=== PATIENT | female | born 1965 | race Caucasian/White ===

== ENCOUNTER 2018-11-21 10:32 | Emergency (ER) | payer SELFPAY ==
[~2018-11-21] VITALS: Ht 162.6 cm; Wt 72.6 kg
[2018-11-21] MEDS ORDERED: KETOROLAC TROMETHAMINE INJ 30 MG/ML VIAL IM ONE (11:00)
--- NOTE | 2018-11-21 11:08 | NUR ---
Went to discharge patient-Pt NO longer in room- Looked all over ER depatment unable to locate. Eloped prior to d/c instructions
[2018-11-21 11:10] VITALS: BP 136/92
== END 2018-11-21 11:00 | disposition home or self-care (01) ==
LOC: ER 10:34
DX: M54.5 Low back pain (principal); Z98.890 Other specified postprocedural states; Z88.2 Allergy status to sulfonamides; Z88.8 Allergy status to other drugs, medicaments and biological substances; X50.0XXA Overexertion from strenuous movement or load, initial encounter; Y93.89 Activity, other specified; Y92.89 Other specified places as the place of occurrence of the external cause; Y99.8 Other external cause status